=== PATIENT | male | born 1995 | race Caucasian/White ===

== ENCOUNTER 2017-10-09 10:21 | Emergency (ER) | payer BC ==
[~2017-10-09] VITALS: Ht 185.4 cm; Wt 90.9 kg
[2017-10-09 11:47] VITALS: BP 140/82; PULSE 79; TEMP 99.3
== END 2017-10-09 11:54 | disposition home or self-care (01) ==
LOC: COL.ER 10:21
DX: S62.313A Displaced fracture of base of third metacarpal bone, left hand, initial encounter for closed fracture (principal); W22.01XA Walked into wall, initial encounter